=== PATIENT | male | born 1965 | race Caucasian/White ===

== ENCOUNTER 2020-03-08 15:04 | Emergency (ER) | payer OTHER ==
[~2020-03-08] VITALS: Ht 182.9 cm; Wt 84.7 kg
--- NOTE | 2020-03-08 15:26 | NUR ---
Pt states H/A x2 days. States H/A started yesterday with a sudden onset of n/v as well. Pt states went to urgent care this am and was medicated IM with "pain and nausea" medication. Pt states he was told to come to ER if he not feeling better. Pt states he is still with 8/10 H/A and nausea. Pt placed on monitors. Will follow orders.
[2020-03-08] MEDS ORDERED: DIPHENHYDRAMINE 50 MG/ML, 1ML ONE (15:50)
[2020-03-08] MEDS ORDERED: KETOROLAC 30 MG/1 ML ONE (15:50)
[2020-03-08] MEDS ORDERED: METOCLOPRAMIDE 5 MG/ML, 2ML ONE (15:50)
[2020-03-08] MEDS ORDERED: KETOROLAC 30 MG/1 ML IVPush ONE (16:00)
[2020-03-08] MEDS ORDERED: SODIUM CHLORIDE 0.9% 1,000ML IVBOLUS ONE (16:00)
[2020-03-08] MEDS ORDERED: METOCLOPRAMIDE 5 MG/ML, 2ML IVPush ONE (16:00)
[2020-03-08] MEDS ORDERED: DIPHENHYDRAMINE 50 MG/ML, 1ML IVPush ONE (16:00)
--- NOTE | 2020-03-08 16:00 | NUR ---
Pt medicated for pain per orders. Remains on monitors. Will cont to monitor.
--- NOTE | 2020-03-08 17:16 | NUR ---
Pt sleeping in bed, no distress noted. VSS, remians on monitors. Cont to monitor.
--- NOTE | 2020-03-08 18:20 | NUR ---
Pt ok for D/C. At time of D/C, pt states he still has an 8/10 H/A, states he feels uncomfortable going home because "I really think this isn't normal." Jackie Chawla aware. Head CT ordered. Pt aware of plan of care. Pt now awaiting CT. Pt remains on monitor. cont to monitor.
[2020-03-08 18:26] VITALS: BP 106/71
--- NOTE | 2020-03-08 19:10 | NUR ---
Jackie Chawla into speak with pt. Pt ok for D/C. Pt has steady gait and all belongings upon D/C. Pt verblized understanding of D/C paperwork.
== END 2020-03-08 19:13 | disposition home or self-care (01) ==
LOC: ED 15:50
DX: G44.229 Chronic tension-type headache, not intractable (principal); R11.2 Nausea with vomiting, unspecified
CPT/HCPCS: 70450; 96361; 96374; 96375; 99284; J1200; J1885; J2765; J7030